=== PATIENT | male | born 1945 ===

== ENCOUNTER 2018-02-21 07:40 | Day surgery (SDC) | payer MEDICARE, OTHER ==
[2018-02-21] MEDS ORDERED: Lactated Ringer's 500 ML IV ONE (08:05)
[2018-02-21] MEDS ORDERED: Midazolam 2 MG/2 ML VIAL ONE (08:35)
[2018-02-21] MEDS ORDERED: Propofol 10 mg/ml Inj (20 ML) ONE (08:35)
[2018-02-21] MEDS ORDERED: Etomidate 20 mg/10ml Inj IV ONE (08:51)
[2018-02-21] MEDS ORDERED: ePHEDrine 50 mg/ml Inj ONE (09:00)
[2018-02-21] MEDS ORDERED: Atropine 0.4 mg/ml Inj (1 mL) ONE (09:02)
[2018-02-21 09:42] VITALS: BP 119/59; PULSE 54; RESP 20; TEMP 97.4; O2SAT 97
== END 2018-02-21 11:17 | disposition home or self-care (01) ==
LOC: H.ENDO 07:40
PROVIDERS: ATTEND Internal Medicine Gastroenterology
DX: Q27.33 Arteriovenous malformation of digestive system vessel (principal); E11.9 Type 2 diabetes mellitus without complications; I10 Essential (primary) hypertension; K64.0 First degree hemorrhoids; K63.89 Other specified diseases of intestine; K57.30 Diverticulosis of large intestine without perforation or abscess without bleeding; K29.70 Gastritis, unspecified, without bleeding; K74.60 Unspecified cirrhosis of liver; K29.50 Unspecified chronic gastritis without bleeding; K25.9 Gastric ulcer, unspecified as acute or chronic, without hemorrhage or perforation
CPT/HCPCS: 43239; 45380; 82948; 88305; J0461; J2001; J2250; J2704; J7120